=== PATIENT | male | born 1960 | race Two or more races ===

== ENCOUNTER 2017-10-12 11:47 | Outpatient (CLI) | payer OTHER ==
[2017-10-12] MEDS ORDERED: LOSARTAN POTASS50 MG PO (14:53)
== END 2017-10-12 11:54 | disposition home or self-care (01) ==
LOC: RAD 11:47
DX: K60.1 Chronic anal fissure (principal); K62.89 Other specified diseases of anus and rectum; K62.5 Hemorrhage of anus and rectum; K59.09 Other constipation

== ENCOUNTER 2017-10-18 06:13 | Day surgery (SDC) | payer OTHER ==
[~2017-10-18 06:13] MED LIST: LOSARTAN POTASS50 MG PO
[2017-10-18] MEDS ORDERED: COLACE100 MG PO (08:20)
[2017-10-18] MEDS ORDERED: PERCOCET 5-3251 EACH PO (08:20)
== END 2017-10-18 13:45 | disposition home or self-care (01) ==
LOC: CIR.AMB 06:13
DX: K60.1 Chronic anal fissure (principal); K62.89 Other specified diseases of anus and rectum

== ENCOUNTER 2018-07-31 06:35 | Day surgery (SDC) | payer OTHER ==
[~2018-07-31 06:35] MED LIST changes: +COLACE100 MG PO; +PERCOCET 5-3251 EACH PO
== END 2018-07-31 11:45 | disposition home or self-care (01) ==
LOC: AMB-ENDOS 06:35
DX: K60.1 Chronic anal fissure (principal); K62.89 Other specified diseases of anus and rectum; K59.09 Other constipation; Z12.11 Encounter for screening for malignant neoplasm of colon